=== PATIENT | female | born 1985 | race Caucasian/White ===

== ENCOUNTER 2022-08-15 08:37 | Outpatient (CLI) | payer BC, SELFPAY | END 2022-08-15 08:38 | disposition home or self-care (01) | LOC: FRMREF 08:44 | PROVIDERS: PCP Family Medicine; Visit Provider Physician Assistant Medical | DX: R19.7 Diarrhea, unspecified (principal); R10.9 Unspecified abdominal pain | CPT/HCPCS: 80053 ==

== ENCOUNTER 2022-08-17 06:00 | Outpatient (CLI) | payer BC, SELFPAY | END 2022-08-17 06:01 | disposition home or self-care (01) | LOC: NFLDREF 08-18 03:41 | PROVIDERS: PCP Family Medicine; Referring Provider Family Medicine; Visit Provider Physician Assistant Medical | DX: R19.7 Diarrhea, unspecified (principal) | CPT/HCPCS: 87045; 87046; 87177; 87209; 87338; 87427; 87493; 87505; 87798 ==

== ENCOUNTER 2024-02-17 09:36 | Outpatient (CLI) | payer BC, SELFPAY ==
[2024-02-20 11:35] LABS: HPV Source Cervical/Vag; HPV, High Risk by TMA Not Detected
[2024-03-02 17:39] LABS: Pap Test Reviewed by Path Done
== END 2024-02-17 09:37 | disposition home or self-care (01) ==
PROVIDERS: PCP Family Medicine; Visit Provider Physician Assistant Medical
DX: Z00.00 Encounter for general adult medical examination without abnormal findings (principal); R19.7 Diarrhea, unspecified; Z13.6 Encounter for screening for cardiovascular disorders; Z13.29 Encounter for screening for other suspected endocrine disorder
CPT/HCPCS: 80053; 80061; 84443; 87624; 87625; 88141; 88142

== ENCOUNTER 2024-05-18 09:30 | Outpatient (CLI) | payer BC, SELFPAY ==
--- NOTE | 2024-05-18 09:45 | CRLHL7_ITS ---
For Patients: As a result of the Cures Act, medical imaging exams and procedure reports are released immediately into your electronic medical record. You may view this report before your referring provider. If you have questions, please contact your health care provider. DIGITAL DIAGNOSTIC BILATERAL MAMMOGRAM USING TOMOSYNTHESIS AND COMPUTER-AIDED DETECTION RIGHT BREAST ULTRASOUND CLINICAL HISTORY: RIGHT breast pain. COMPARISON: None. TECHNIQUE: Digital BILATERAL mammogram in four projections with computer-aided detection. Tomosynthesis was used in this interpretation. Real-time ultrasound imaging of RIGHT breast with imaging documentation. BREAST COMPOSITION: The breasts are heterogeneously dense, which may obscure small masses. FINDINGS: 3D CC/MLO BILATERAL mammogram images submitted. No suspicious mass or architectural distortion. No suspicious calcifications or adenopathy. Targeted RIGHT breast ultrasound performed in the area of concern at the 3 o`clock position. No fibrocystic change or mass. IMPRESSION: No suspicious findings. No evidence of malignancy. RECOMMENDATIONS: Clinical follow-up and routine screening mammography. A lay language report of this examination will be provided to the patient. BI-RADS Category 2: Benign Dictated by Andrew Adkins MD @ 05/18/2024 11:44:56 AM jj/Dictated by: Andrew Adkins MD @ 05/18/2024 11:44:00 AM (Electronically Signed)
--- NOTE | 2024-05-18 10:15 | CRLHL7_ITS ---
For Patients: As a result of the Cures Act, medical imaging exams and procedure reports are released immediately into your electronic medical record. You may view this report before your referring provider. If you have questions, please contact your health care provider. SEE DIGITAL DIAGNOSTIC BILATERAL MAMMOGRAM PERFORMED SAME DAY CRL:phil villarreal/Dictated by: Andrew Adkins MD @ 05/18/2024 11:43:00 AM (Electronically Signed)
== END 2024-05-18 09:31 | disposition home or self-care (01) ==
LOC: MAMMO 09:30
PROVIDERS: PCP Physician Assistant Medical; Visit Provider Physician Assistant
DX: N64.4 Mastodynia (principal); R92.333 Mammographic heterogeneous density, bilateral breasts
CPT/HCPCS: 76642; 77066; G0279

== ENCOUNTER 2025-03-29 08:41 | Outpatient (CLI) | payer BC, SELFPAY | END 2025-03-29 08:42 | disposition home or self-care (01) | LOC: NFLDREF 04-03 17:05 | PROVIDERS: PCP Physician Assistant Medical; Referring Provider Physician Assistant Medical | DX: R19.7 Diarrhea, unspecified (principal) | CPT/HCPCS: 87505; 87507 ==

== ENCOUNTER 2025-04-12 09:39 | Outpatient (CLI) | payer BC, SELFPAY | END 2025-04-12 09:40 | disposition home or self-care (01) | LOC: LKVREF 09:40 | PROVIDERS: PCP Physician Assistant Medical; Visit Provider Physician Assistant | DX: Z00.00 Encounter for general adult medical examination without abnormal findings (principal); Z13.1 Encounter for screening for diabetes mellitus | CPT/HCPCS: 80061; 82947 ==